=== PATIENT | male | born 1980 | race Caucasian/White ===

== ENCOUNTER 2024-01-31 10:26 | Outpatient (AMB) | payer OTHER, SELFPAY ==
--- NOTE | 2024-01-31 10:27 | MHC.OFFWIV ---
Intake Vital Signs 01/31/24 10:28 Height 5 ft 11 in Weight 180 lb BMI 25.1 BP 118/76 Blood Pressure Location Rt brachial Position Sitting Pulse 92 Pulse Source Pulse Oximeter Pulse Oximetry (%) 98 Oxygen Delivery Method Room Air Intake Visit Reasons: EP- rash on body, not allergic to anything Intake Note: Patient here for a reaction on hands and arms that has been present at least when he noticed it was two days ago. pt did mention he was recently sick. no dietary changes,body soaps,detergents. Patient Tobacco Use Status: Former Tobacco user Allergies No Known Allergies Allergy (Verified 01/31/24 10:32) Do you need a note to return to daycare/school/sports/work: No HPI EP- rash on body, not allergic to anything HPI Details This note is constructed using voice recognition software. While every effort has been made to ensure accuracy, chief nuclear medicine technologist errors may have been included. The patient is a 41 year old male who presents to the clinic today with rash after recent viral illness 2 weeks ago. He notes that the rash appeared several days ago to his right hip and in his left hip. The area was flat, red, not itchy, not irritating, not painful. He has not had any new soaps, lotions, foods, detergents, or any new exposures. He tried Benadryl the last 3 nights, it seemed to make the rash slightly better. He denies fever, chills. [facility] Surgical History (Updated 05/06/20 @ 13:55 by Jacquie Luong, ADIEL, [facility]) No pertinent past surgical history Family History (Updated 05/06/20 @ 13:56 by Jacquie Luong, ADIEL, [facility]) Father No problems noted. Mother No problems noted. Brother No problems noted. Sister No problems noted. Social History Patient Tobacco Use Status: Former Tobacco user Review of Systems Const All systems reviewed & are unremarkable except as noted in HPI and below Physical Exam Vital Signs: Last Vital Signs Pulse 92 01/31/24 10:28 BP 118/76 01/31/24 10:28 Pulse Ox 98 01/31/24 10:28 Oxygen Delivery Method Room Air 01/31/24 10:28 BMI result Body Mass Index 25.1 Const General: cooperative, healthy appearing, comfortable, no acute distress and alert Orientation/consciousness: patient oriented x3 Limitations: no limitations Skin Other: Flat erythematous rash consistent with viral exanthem to right forearm, bilateral hip, and left forearm. General skin exam: elasticity normal and turgor normal Neuro General: patient oriented x3 Psych Appearance: grossly normal Mental Status: mental status grossly normal Speech and movement: Normal speech and movement present Affect: normal affect Assessment & Plan Assessment & Plan (1) Viral exanthem: Code(s): B09 - Unspecified viral infection characterized by skin and mucous membrane lesions Plan: Discussed with viral etiology, this may completely resolve without treatment. Given patient's response to Benadryl, we did discuss additional antihistamine treatments. He will try Pepcid daily in addition to second-generation antihistamine every day for the next week with Benadryl at bedtime. Advised patient to be seen in the emergency room with sudden worsening, including any dyspnea or tongue swelling. Advised patient to follow up with primary care for ongoing rash. Plan See above for full details and plan. Coding Level of Care Code Est Pt Level 3 (81015) Diagnoses Viral exanthem B09
[2024-01-31 10:28] VITALS: BP 118/76; PULSE 92; O2SAT 98; BMI 25.1
== END 2024-01-31 10:47 | disposition home or self-care (01) ==
PROVIDERS: PCP Nurse Practitioner Family; Visit Provider Registered Nurse
DX: B09 Unspecified viral infection characterized by skin and mucous membrane lesions (principal)
CPT/HCPCS: 99213

== ENCOUNTER 2024-10-21 15:04 | Outpatient (AMB) | payer OTHER, SELFPAY ==
[2024-10-21 15:02] VITALS: BP 130/77; PULSE 88; RESP 16; TEMP 36.7; O2SAT 97; BMI 27.5
--- NOTE | 2024-10-21 15:02 | A.OFFPC_ITS ---
Vital Signs 10/21/24 15:02 Height 5 ft 11 in Weight 197 lb BMI 27.5 BP 130/77 Respiration 16 Pulse 88 Pulse Source Pulse Oximeter Temp 98.1 F Temp Source Temporal Artery Scan Pulse Oximetry (%) 97 Oxygen Delivery Method Room Air Intake Visit Reasons: Establish Care Power Line Lineman Required: No Accompanied by: Self / Same As Patient Allergies No Known Allergies Allergy (Verified 10/21/24 15:53) Medication List - Last Reconciled 10/21/24 by Janette Madrid PA-C No Known Home Meds Tobacco use date assessed: 10/21/24 Dental Screening Dental Screen Date: 10/21/24 Did you have a dental visit in the last 12 months?: Yes Did you have a dental problem in the last 6 months where you did not have access to dental care?: No Was dental information given to patient?: Patient has dentist HPI Establish Care HPI Details The patient is a 43-year-old male presenting patient new primary care provider due to he has not seen a primary care provider in over 3 years. He would like to discuss his anxiety, a request for colorectal cancer screening due to a family history, and a request for a vasectomy. The patient describes having feelings of anxiety. He denies any formal psychiatric diagnoses in the past, and while he has not experienced symptoms such as headaches or dizziness, he is seeking a referral for counseling services. Concerned about his family predisposition to colorectal cancer, where his paternal and maternal grandfathers had the condition and knowing his brother had polyps, the patient seeks assessment sooner than the standard 45 years commencement. Although his personal symptomatology has not warranted medical intervention in the past, the patient aligns with the guidelines for earlier screening due to family circumstances. The patient's request for a vasectomy follows his decision to not pursue fatherhood, expressing a desire for a permanent contraceptive solution. Additionally, there is an indication of prior vitamin D deficiency consistent with a typical deficiency seen in individuals living in regions with limited sunlight exposure, suggesting the need for ongoing monitoring. 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 - Lives alone, highlighting independence and potential lack of social support at home. - Has not taken a vacation since August 18, possibly contributing to stress and anxiety. - Expressed a strong desire for a vasect darek, indicating he is secure in his decision not to have children. [facility] Medical History (Updated 10/21/24 @ 15:56 by Janette Madrid PA-C) Anxiety Colon cancer screening Establishing care with new doctor, encounter for Vasectomy evaluation Surgical History No pertinent past surgical history Family History Father High cholesterol Mother Joint problem Brother No problems noted. Sister No problems noted. Social History Housing: House Alcohol intake: current Alcohol intake frequency: a few times a month Patient Tobacco Use Status: Former Tobacco user service: No Current occupational status: employed Cognitive needs: No Hearing needs: No Vision needs: Yes (rx glasses) Questionnaire PHQ-9 Over the last 2 weeks, how often have you been bothered by any of the following problems? 1. Little interest or pleasure in doing things: several days 2. Feeling down, depressed, or hopeless: more than half the days 3. Trouble falling or staying asleep, or sleeping too much: nearly every day 4. Feeling tired or having little energy: several days 5. Poor appetite or overeating: more than half the days 6. Feeling bad about yourself - or that you are a failure or have let yourself or your family down: nearly every day 7. Trouble concentrating on things, such as reading the newspaper or watching television: not at all 8. Moving or speaking so slowly that other people could have noticed. Or the opposite - being so fidgety or restless that you have been moving around a lot more than usual: not at all 9. Thoughts that you would be better off or of hurting yourself in some way: not at all Total score: 12 Depression Screening Interpretation: Positive Depression Screening Follow-up: Community Mental Health Worker F/U Depression Screening Done: Yes 81048 - PHQ-9 Billing: Yes Source: Developed by Drs. Rubén Paris, Chastity Cheema, Leopoldo Kapoor and colleagues, with an educational sylvain from [employer]. Thrive Questionnaire Date Thrive assessed: 10/21/24 I am a: Patient What is your living situation today?: I have a steady place to live Within the past 12 months, did the food you bought not last and you didn't have the money to get more?: Never true Within the past 12 months, did you worry whether your food would run out before you got money to buy more?: Never true Do you have trouble paying for medicines?: No Do you have trouble getting transportation to medical appointments?: No Do you have trouble paying your heating and electricity bill?: No Do you have trouble taking care of your child, family member or friend?: No Do you have trouble with day-to-day activities such as bathing, preparing meals, shopping, managing finances, etc.?: No Are you currently unemployed and looking for a job?: No Are you interested in more education?: No Please select the resources that you would like help with: None THRIVE Score: 0 AUDIT C Alcohol Use Questionnaire (AUDIT-C) 1. How often do you have a drink containing alcohol?: 2-4 times a month 2. How many drinks containing alcohol do you have on a typical day when you are drinking?: 1 or 2 3. How often do you have six or more drinks on one occasion?: Never Total Score: 2 Score Reviewed/Action Taken: No LEXUS-7 AMB Questionnaire LEXUS-7 Date LEXUS - 7 assessed: 10/21/24 Feeling nervous, anxious, or on edge: 3 = Nearly every day Not being able to stop or control worryin = Nearly every day Worrying too much about different things: 3 = Nearly every day Trouble relaxin = Several days Being so restless that it is hard to sit still: 0 = Not at all Becoming easily annoyed or irritable: 2 = More than half the days Feeling afraid as if something awful might happen: 3 = Nearly every day Total LEXUS-7 score (0-4 normal; 5-9 mild; 10-14 moderate; 15-21 severe): 15 Source: Developed by Drs. Rubén Paris, Chastity Cheema, Leopoldo Kapoor and colleagues, with an educational sylvain from [employer] LEXUS-7 Assessment Billing LEXUS-7 Assessment Tool: LEXUS-7 Assessment 16523 Review of Systems Const Details: - General: Denies unintentional weight gain or weight loss. - Cardiovascular: Denies chest pain or shortness of breath. - Gastrointestinal: Denies black or bloody stools, diarrhea, or constipation. Reports past family history of colon cancer. - Neurological: Denies dizziness or headaches. - Psychiatric: Reports anxiety; denies feeling of depression or having been diagnosed with anxiety or depression previously. Denies suicidal thoughts or hearing voices. - Dermatological: Denies current rashes or skin abnormalities; reports prior post-viral rash which resolved. Physical exam (Primary Care) Vital Signs: Last Vital Signs Temp 98.1 F 10/21/24 15:02 Pulse 88 10/21/24 15:02 Resp 16 10/21/24 15:02 BP 130/77 10/21/24 15:02 Pulse Ox 97 10/21/24 15:02 Oxygen Delivery Method Room Air 10/21/24 15:02 Care Plan Goal for BP management: <130/90 at Goal BMI result Body Mass Index 27.5 BMI Assessment/Plan discussion: High BMI High, discussed plan: lifestyle, weight reduction, dietary, physical activity and alcohol moderation Tobacco/Smoking Status: Tobacco use Status Tobacco use date assessed 10/21/24 10/21/24 15:12 Patient Tobacco Use Status Former Tobacco user 10/21/24 15:12 PHQ-9: PHQ-9 Score PHQ-9: Total score 12 10/21/24 15:12 Depression Screening Interpretation: Positive Depression Screening Follow-up: Community Mental Health Worker F/U Thrive Assessment: Date of Thrive Assessment Date Thrive assessed 10/21/24 10/21/24 15:12 Const Other: Appearance: Alert. Oriented X3. No acute distress. Head: Normal external exam. Normocephalic. Atraumatic. Eyes: Pupils are equal, round, and reactive to light. Extraocular movements intact. Conjunctiva and sclera normal. Eyelids normal. Ears: External auditory canal normal. Tympanic membranes normal. Throat: Pharynx normal. Uvula midline. Moist mucous membranes. Neck: Normal inspection. Neck supple. Full range of motion. No adenopathy. Thyroid Normal. No meningeal signs. No neck mass noted. Cardiovascular: Normal heart rate and rhythm. Heart sound normal. No murmurs noted. Pulses normal throughout. Respiratory: No respiratory distress. Painless inspiration. Breath sounds normal. No wheezes/rales/rhonchi noted. Chest nontender. No accessory muscle usage noted or decreased air movement noted. Abdomen: Soft and nontender. Bowel sounds normal in all 4 quadrants. No distention noted. No organomegaly noted. No visible injury noted. Back: No costovertebral angle tenderness. Full range of motion noted. Skin: Skin warm and dry. Normal skin color. Normal skin turgor. No rashes/lesions/lacerations noted. Patient reported a post-viral rash that has improved. Extremities: No lower extremity edema. Extremities exhibit normal range of motion. Extremities nontender. Neuro: Oriented X 3. No motor deficit. No sensory deficit. Reflexes normal. Coding Level of Care Code Est Pt Level 4 (65079) Complex EM visit Add On G2211 Diagnoses Establishing care with new doctor, encounter for Z76.89 Vasectomy evaluation Z30.09 Colon cancer screening Z12.11 Anxiety F41.9 Additional Codes PHQ-9 - 55682 - PHQ-9 Billing: Yes ([id number]) LEXUS-7 Assessment Billing - LEXUS-7 Assessment Tool: LEXUS-7 Assessment 95409 ([id number]) Assessment & Plan Assessment & Plan (1) Establishing care with new doctor, encounter for: Code(s): Z76.89 - Persons encountering health services in other specified circumstances Category: Medical (2) Vasectomy evaluation: Code(s): Z30.09 - Encounter for other general counseling and advice on contraception Category: Medical Plan: Referral to a urologist for consultation and scheduling of the vasectomy procedure was discussed, emphasizing patient's decision. (3) Colon cancer screening: Code(s): Z12.11 - Encounter for screening for malignant neoplasm of colon Category: Medical Plan: Due to a strong family history of colon cancer, referral for gastrointestinal evaluation and possible colonoscopy is planned for preventive care. (4) Anxiety: Code(s): F41.9 - Anxiety disorder, unspecified Category: Medical Plan: The patient is referred to [facility] for comprehensive evaluation and management of anxiety without medication initiation. Plan Plan Patient was informed and verbally consented to the use of an ambient scribe for clinic note documentation during this visit. 1. Anxiety The patient is referred to [facility] for comprehensive evaluation and management of anxiety without medication initiation. 2. Screening For Colorectal Cancer Due to a strong family history of colon cancer, referral for gastrointestinal evaluation and possible colonoscopy is planned for preventive care. 3. Vasectomy, Counseling Or Pre-Procedure Evaluation And Management Referral to a urologist for consultation and scheduling of the vasectomy procedure was discussed, emphasizing patient's decision. 4. Vitamin D Deficiency, Suspected A lab test for vitamin D assessment is scheduled due to prior low levels and potential deficiency risks. 5. Family History Of Colon Cancer Referring the patient for colorectal cancer screening considering familial history enhances early detection and ongoing assessment frameworks. I discussed at length with the patient his concerns regarding anxiety, family history of colon cancer, and request for vasectomy. I provided reassurance regarding the management options for anxiety and agreed on a referral to [facility] for evaluation and therapy. Regarding colorectal cancer screening, I explained the need for a gastroenterology referral due to the patient's significant family history, emphasizing the benefits of early detection via colonoscopy. We reviewed the plan for vasectomy, where I outlined the procedural details, possible risks, permanent nature, and subsequent effects on reproductive health, confirming the patient's decision. Information regarding laboratory assessment for suspected vitamin D deficiency was shared to ensure comprehensive health management. I discussed follow-up timelines and confirmed understanding of anticipatory care needs. Orders: Orders C Reactive Protein Today Z00.00 - Encounter for general adult medical examination without abnormal findings Comprehensive [place]. Panel Fast Today Z00.00 - Encounter for general adult medical examination without abnormal findings Magnesium Today Z00.00 - Encounter for general adult medical examination without abnormal findings Vitamin B12 and Folate Today Z00.00 - Encounter for general adult medical examination without abnormal findings Vitamin D 25-OH Total Today Z00.00 - Encounter for general adult medical examination without abnormal findings TSH reflex Free T4 Today Z00.00 - Encounter for general adult medical examination without abnormal findings Complete Blood Count Auto Diff Today Z00.00 - Encounter for general adult medical examination without abnormal findings Hemoglobin A1c Today Z00.00 - Encounter for general adult medical examination without abnormal findings Lipid Panel Today Z00.00 - Encounter for general adult medical examination without abnormal findings Liver Panel Today Z00.00 - Encounter for general adult medical examination without abnormal findings PSA,Total (Free>4and<10) Today Z00.00 - Encounter for general adult medical examination without abnormal findings Referrals Gastroenterology Referral Z12.11 - Encounter for screening for malignant neoplasm of colon Urology Referral Z30.09 - Encounter for other general counseling and advice on contraception Counseling Referral F41.9 - Anxiety disorder, unspecified Patient Instructions: - Schedule a visit for blood work, including fasting lab tests for vitamin D and other routine panels. - Follow up with the senior clinical research associate for colonoscopy scheduling. - Consult with a urologist regarding the vasectomy procedure. - Attend sessions at [facility] for anxiety management and support. - Maintain a healthy lifestyle, including sunshine exposure or vitamin supplementation, if advised. - Schedule an annual visit in one year unless otherwise recommended based on lab findings. - Contact the office if lab results do not appear, or if referrals are not received within one month.
--- OUTSIDE RECORDS SUMMARY | 2024-10-21 16:40 | XMS_ITS | Encounter Summary ---
Author Organization [employer] Address [address] [place] [address] Care Team Providers Care Interior Design Assistant Name Role Phone Nadir Arambula MD Primary Care Prov ider Reason for Visit * Reason Onset Date Comments NEW PATIENT 06/22/2023 Encounter Details Date Type Department Care Team (Late st Contact Info) Description 06/22/2023 Telephone [facility] [address] [place] [address] Crow Lutz MD [address] [place] [address] NEW PATIENT Social History Tobacco Use Types Packs/Day Years Used Date Smoking Tobacco: Never Assessed Sex and Gender Information Value Date Recorded Sex Assigned at Male 06/22/2023 4:01 PM EST Legal Sex Male 3:59 PM EST Gender Identity Male 06/22/2023 4:01 PM EST Sexual Orientation Don't know 06/22/2023 4: 02 PM EST documented as of this encounter Miscellaneous Notes * Telephone Encounter - Juana Renee - 06/22/2023 4:03 PM EST Pt is on [facility] as of 06/15/2023 documented in this encounter Plan of Treatment Not on file documented as of this encounter Visit Diagnoses Not on filedocumented in this encounter Care Teams Interior Design Assistant Relationship Specialty Start Date End Date Nadir Arambula MD [address] [place] [address] PCP - General Internal Medicine 01/08/24 documented as of this encounter
--- OUTSIDE RECORDS SUMMARY | 2024-10-21 16:40 | XMS_ITS | Clinical Summary ---
Author Organization [facility] Address [address] [place] [address] Care Team Providers Care Tool Engine Lathe Set Up Operator Name Role Phone Nadir Arambula MD Primary Care Prov ider Allergies No known active allergies Medications No known medications Active Problems Problem Noted Date Diagnosed Date Encounter for medical examination to establish c are 01/04/2024 Assessment & Plan (01/04/2024 2:10 PM EDT): Patient has not been seen by a pcp in over 10 years No hospitalizations No recent er visit Pmhx- Pshx umbilical hernia repair All:- Meds: tylenol/motrin otc prn Family History Medical History Relation Name Comments Hyperlipidemia Father Osteoarthritis Mother Cancer Paternal Grandfather Relation Name Status Comments Father Mother Paternal Grandfather Social History Tobacco Use Types Packs/Day Years Used Date Smoking Tobacco: Never Smokeless Tobacco: Never Tobacco Cessation:Counseling Given: Not Answered Alcohol Use Standard Drinks/Week Comments Yes 0 (1 standard drink = 0.6 oz pur e alcohol) socially Depression Answer Date Recorded Patient Health Questionnaire-9 Score 0 01/04/2024 Patient Health Questionnaire-9 Score 0 01/04/2024 Last PHQ-9: Questionnaire Data Not on file 0 01/04/2024 Housing Stability Answer Date Recorded What is your housing situation today? I have dana madera 01/04/[address] you li ve. Do you have problems with any of the following? None of the above 01/04/2024 Food Insecurity Answer Date Recorded Within the past 12 months, y ou worried that your food would run out before you got money to buy more: Never True 01/04/2024 Within the past 12 months,th e food you bought just didn't last and you didn't have enough money to get more: Never True Transportation Answer Date Recorded In the past 12 months, has l ack of transportation kept you from medical appts, meetings, work or from getting things needed for daily living? No 01/04/2024 Utilities Answer Date Recorded In the past 12 months, has t he electric, gas, oil or water company threatened to shut off services in your home? No 01/04/2024 Depression Answer Date Recorded Patient Health Questionnaire-2 Score 0 01/04/2024 Internet Access Answer Date Recorded Internet Access Q1 Yes 02/19/2024 Internet Access Q2 Not on file 02/19/2024 Sex and Gender Information Value Date Recorded Sex Assigned at Male 06/22/2023 4:01 PM EST Legal Sex Male 3:59 PM EST Gender Identity Male 06/22/2023 4:01 PM EST Sexual Orientation Don't know 06/22/2023 4: 02 PM EST Plan of Treatment Health Maintenance Due Date Last Done Comments HIV Screening 1981 Lipid Panel 1981 Alcohol/Substance Use Screening 1993 Family Planning (PISQ) 1996 Hepatitis C Screening 11/04/1999 Hepatitis B Vaccines (1 of 3 - 19+ 3-dose series) 2000 DTaP/Tdap/Td Vaccines (2 - T d or Tdap) 08/02/2017 08/02/2007 COVID-19 Vaccine (2023-2 5 season) 2024 05/08/2021, 10/04/2020, 09/06/2020 Influenza Vaccine (#1) 2024 05/08/2021 Depression Screening 01/03/2025 01/04/2024, 01/04/2024 SDOH Screening 01/03/2025 01/04/2024 Tobacco Screening 01/03/2025 01/04/2024 Zoster Vaccines (1 of 2) 11/04/2031 RSV Patients and Patients Aged 60 years or older (1 - 1-dose 75+ series) 2056 Pneumococcal Vaccine: Pediatrics (0 to 5 Years) and At-Risk Patients (6 to 49) Years) Aged Out 08/05/2010 No longer eligible b ased on patient's age to complete this topic HIB Vaccines Aged Out No longer eligi ble based on patient's age to complete this topic HPV Vaccines Aged Out No longer eligi ble based on patient's age to complete this topic Hepatitis A Vaccines Aged Out No long er eligible based on patient's age to complete this topic IPV Vaccines Aged Out No longer eligi ble based on patient's age to complete this topic Meningococcal Vaccine Aged Out No evert chuck eligible based on patient's age to complete this topic RSV under 20 months Aged Out No longe r eligible based on patient's age to complete this topic Rotavirus Vaccines Aged Out No longer eligible based on patient's age to complete this topic Insurance [facility] [employer] Care Teams Tool Engine Lathe Set Up Operator Relationship Specialty Start Date End Date Nadir Arambula MD [address] [place] [id number] PCP - General Internal Medicine 01/08/24
--- OUTSIDE RECORDS SUMMARY | 2024-10-21 16:40 | XMS_ITS | Clinical Summary ---
Demographics Address [address] [facility] [address] [place] [address] Home Phone Email Address Preferred Language Vincentian Marital Status Latter Day Affiliation Unknown Race White Ethnic Group Not or Lati no Author Organization [facility] Address [address] [place] [address] Care Team Providers Care Yeast Cake Cutter Name Role Phone Karen Love [facility] Primary Care Provider [phone] Source Comments PLEASE NOTE, if this patient is a minor, it may be UNLAWFUL to discuss sensitive information that is contained in these records (such as FAMILY PLANNING, MENTAL HEALTH or SUBSTANCE ABUSE) with the minor patient's parent or other person without the patient's specific authorization.[facility] Allergies No known active allergies Medications No known medications Active Problems No known active problems Immunizations Immunization Administration Dates Next Due PNEUMOCOCCAL CONJUGATE PCV 13 08/05/2010 TDAP 08/02/2007 Family History Medical History Relation Name Comments Hypertension Brother Musculoskeletal Disorders Father ba ck pain Hypertension Mother Relation Name Status Comments Brother Alive Father Alive Mother Alive Social History Tobacco Use Types Packs/Day Years Used Date Smoking Tobacco: Former Comments:quiied smoking 09/05 16, used to smoke 1 pack a day Alcohol Use Standard Drinks/Week Comments Yes 0 (1 standard drink = 0.6 oz pur e alcohol) socially Social Connections Answer Date Recorded Social Connections and Isolation 0 02/10/2019 Financial Resource Strain Answer Date R ecorded Financial Resource Strain 0 2018 Stress Answer Date Recorded Stress 0 02/10/2019 Physical Activity Answer Date Recorded Physical Activity 0 02/10/2019 Food Insecurity Answer Date Recorded Food 0 02/10/2019 Transportation Needs Answer Date Record ed Transportation 0 02/10/2019 Housing Stability Answer Date Recorded Housing 0 02/10/2019 Safety and Environment Answer Date Luke rded Safety 0 02/10/2019 Utilities Answer Date Recorded Utilities 0 02/10/2019 Employment Answer Date Recorded Employment 0 02/10/2019 Sex and Gender Information Value Date Recorded Sex Assigned at Not on file Legal Sex Male 11:49 AM PDT Gender Identity Not on file Sexual Orientation Not on file Last Filed Vital Signs Vital Sign Reading Time Taken Comments Blood Pressure 126/78 12/16/2016 1:55 PM EDT Pulse 64 12/16/2016 1:55 PM EDT Temperature 36.8 ??C (98.3 ??F) 12/16/2016 1:55 PM ED T Respiratory Rate 17 12/16/2016 1:55 PM EDT Oxygen Saturation - - Inhaled Oxygen Concentration - - Weight 101.2 kg (223 lb) 12/16/2016 1:55 PM EDT Height 180.3 cm (5' 11 ) 12/16/2016 1:55 PM EDT Body Mass Index 31.1 12/16/2016 1:55 PM EDT Plan of Treatment Not on file Insurance [employer] Member Subscriber Plan / Payer (Ef fective 2016-Present) Name:Emiliano Mcnulty Relation to Subscriber:Self Name:Emiliano Mcnulty Payer ID:[id number] Group ID:Not on file Type:Indemnity Address: [facility] [address] [place] [address] Care Teams Yeast Cake Cutter Relationship Specialty Start Date End Date Karen Love FNP [facility] [place] [address] PCP - General Internal Medicine 08/09/18
== END 2024-10-21 15:36 | disposition home or self-care (01) ==
LOC: HO.HMCSH 15:04
PROVIDERS: PCP Nurse Practitioner Family; Visit Provider Physician Assistant Medical
DX: F41.9 Anxiety disorder, unspecified (principal); Z76.89 Persons encountering health services in other specified circumstances; Z12.11 Encounter for screening for malignant neoplasm of colon

== ENCOUNTER → 2024-10-21 15:04 | Outpatient (BNVA) | payer OTHER, SELFPAY | PROVIDERS: PCP Nurse Practitioner Family; Visit Provider Physician Assistant Medical | DX: Z76.89 Persons encountering health services in other specified circumstances (principal); Z30.09 Encounter for other general counseling and advice on contraception; F41.9 Anxiety disorder, unspecified; Z80.0 Family history of malignant neoplasm of digestive organs | CPT/HCPCS: 96127; 99212 ==

== ENCOUNTER 2025-03-14 15:22 | Outpatient (AMB) | payer OTHER, SELFPAY ==
--- NOTE | 2025-03-14 15:24 | MHC.OFFVIS ---
Vital Signs 03/14/25 15:28 Height 5 ft 11 in Weight 190 lb BMI 26.5 BP 114/64 Blood Pressure Location Lt brachial Position Sitting Pulse 84 Pulse Source Pulse Oximeter Pulse Oximetry (%) 96 Oxygen Delivery Method Room Air Intake Visit Reasons: colo screening Intake Note: New pt for initial colo screening. CC: Pt denies any GI sx or concerns at this time. Pt reports FMHx on both sides of his family. Siding Installer Required: No Accompanied by: Self / Same As Patient Allergies No Known Allergies Allergy (Verified 10/21/24 15:53) HPI HPI colo screening: Details: 44-YEAR-OLD MALE HERE for preprocedural meeting to discuss a screening colonoscopy. He is referred by Janette Madrid. PMX Anxiety Family history of colon cancer and polyps * SURGICAL HISTORY Epigastric hernia repair * ALLERGIES: NKDA * Compumatrix LABS: none TODAY'S VISIT This is his 1st colonoscopy. Bowel or upper GI problems: No Cardiac or respiratory problems: No Anesthesia or sedation problems: no Infectious disease problems: no There is a family history of polyps in both the mother and father and colon cancer in the maternal grandfather. [facility] Medical History (Updated 03/14/25 @ 15:31 by ALBA Burciaga) Establishing care with new doctor, encounter for Colon cancer screening Anxiety Vasectomy evaluation Surgical History (Updated 03/14/25 @ 15:36 by ALBA Burciaga) H/O ventral hernia repair Family History Father High cholesterol Mother Joint problem Brother No problems noted. Sister No problems noted. Social History Housing: House Alcohol intake: current Alcohol intake frequency: a few times a month Patient Tobacco Use Status: Former Tobacco user service: No Current occupational status: employed Cognitive needs: No Hearing needs: No Vision needs: Yes (rx glasses) Review of Systems Const Denies fatigue, Denies fever(s), Denies night sweats, Denies poor appetite and Denies weight loss ENT Reports Normal hearing present, Denies dental pain, Denies dysphagia, Denies hearing loss, Denies mouth pain, Denies odynophagia, Denies throat swelling, Denies tongue swelling and Reports other (Dentition adequate) Card Reports no additional complaints Resp Reports no additional complaints GI Details: Denies abdominal pain, Denies melena, Denies bloating, Denies hematochezia, Denies constipation, Denies GI cramping, Denies dysphagia, Denies excessive flatus, Denies early satiety, Denies heartburn, Denies diarrhea, Denies nausea, Denies odynophagia, Denies vomiting and Denies hematemesis Skin/Breast Denies pruritus, Denies lesions, Denies rash and Denies jaundice Neuro Reports Normal hearing present and Denies Abnormal speech present Endo Denies fatigue Aller/Immun Denies throat swelling and Denies tongue swelling Physical Exam Const General: cooperative, no acute distress, well developed and well groomed Nutritional Appearance: average body habitus and well nourished Orientation/consciousness: oriented to person, oriented to place and oriented to time Limitations: No language barrier HEENT Head: Yes normocephalic and Yes atraumatic Eyes General: appearance normal, both eyes and all related structures Pupils: Equal, round and reactive pupils present Neck Neck: Yes normal visual inspection and Yes no lymphadenopathy Thyroid: Thyroid normal Resp Effort & Inspection: normal respiratory effort and able to speak in complete sentences Auscultation: clear to auscultation bilaterally Cardio Rate: regular rate Rhythm: regular rhythm Heart sounds: Normal, physiologic split S2 sound present Peripheral pulses: radial pulses present and posterior tibial pulses present GI Inspection: No distended and No Abdominal panniculus present Palpation (GI): Soft to palpation, nontender, no guarding, not rigid and No hepatosplenomegaly present Percussion: Yes normal to percussion Auscultation: normal bowel sounds Rectal Exam - Male: Yes deferred Abdomen image:  1. surgical scar Skin General skin exam: no rashes or lesions noted, turgor normal, skin not dry, no jaundice, No spider nevi and no striae Rashes: no rashes Nails: normal Neuro General: oriented to person, oriented to place and oriented to time Cranial nerves: Yes Equal, round and reactive pupils present and Yes Normal hearing present Speech: No Abnormal speech present Extrem General: Yes normal to inspection, No clubbing, No cyanosis and No edema Psych Appearance: grossly normal and well kempt Mental Status: mental status grossly normal Speech and movement: Normal speech and movement present Affect: normal affect Attitude: cooperative Thought process: Normal thought process present and not confabulating Thought content: Normal thought content present Insight: Good insight present (Psych) Judgement: Good judgement present (Psych) Assessment & Plan Assessment & Plan (1) Family history of polyps in the colon: Code(s): Z83.719 - Family history of colon polyps, unspecified Category: Medical (2) Pre-op examination: Code(s): Z01.818 - Encounter for other preprocedural examination Category: Medical Plan This is his 1st colonoscopy. Bowel or upper GI problems: No Cardiac or respiratory problems: No Anesthesia or sedation problems: no Infectious disease problems: no There is a family history of polyps in both the mother and father and colon cancer in the maternal grandfather. Orders: Orders Complete Blood Count Auto Diff Today Z01.818 - Encounter for other preprocedural examination Comprehensive Met. Panel Today Z01.818 - Encounter for other preprocedural examination Referrals GI Procedure Notification Z01.818 - Encounter for other preprocedural examination, Z83.719 - Family history of colon polyps, unspecified Medications: New sodium,potassium,mag sulfates 17.5-3.13-1.6 gram (Suprep Bowel Prep Kit) 480 mL orally; FOR COLONOSCOPY PREP 354 mL 0RF Coding Level of Care Code New Pt Level 3 (94513) Diagnoses Family history of polyps in the colon Z83.719 Pre-op examination Z01.818
[2025-03-14 15:28] VITALS: BP 114/64; PULSE 84; O2SAT 96; BMI 26.5
--- OUTSIDE RECORDS SUMMARY | 2025-03-14 15:49 | XMS_ITS | Encounter Summary ---
Author Organization [facility] Address [address] [place] [address] Phone Care Team Providers Care Foaming Machine Operator Name Role Phone Hayder Monson INTEGRATION ASSISTANT Primary Care Provider + Encounter Details Date Type Department Care Team (Late st Contact Info) Description 11/28/2019 Transcribe Orders [facility] [address] [place] [id number] Hayder Monson, JUDIE [address] [place] [address] [place] [address] COVID-19 ruled out (Primary Dx) Social History Tobacco Use Types Packs/Day Years Used Date Smoking Tobacco: Never Assessed Sex and Gender Information Value Date Recorded Sex Assigned at Not on file Legal Sex Male 7:59 AM EST Gender Identity Not on file Sexual Orientation Not on file documented as of this encounter Plan of Treatment Not on file documented as of this encounter Results * SARS-CoV-2 antibody, total (11/28/2019 11:31 AM EDT) [facility] SARS-CoV-2 antibody total Negative Negative [facility] Comment: A negative test result does not rule out the possibility of an infection with SARS-CoV-2. Serum or plasma samples from the early (pre-seroconversion) phase of illness can yield negative findings. Therefore, this test cannot be used to diagnose an acute infection. Also, over time, titers may decline and eventually become negative. Blood 11/28/2019 11:3 1 AM EDT 11/28/2019 12:03 PM EDT us Hayder Monson INTEGRATION ASSISTANT LAB BLOOD ORDERABLES Fin al Result [facility] [address] [place] [address] documented in this encounter Visit Diagnoses Diagnosis COVID-19 ruled out- Primary documented in this encounter Care Teams Foaming Machine Operator Relationship Specialty Start Date End Date Hayder Monson, JUDIE [address] [place] [address] PCP - General Family Medicine 11/28/19 documented as of this encounter Additional Source Comments The information contained in this document represents components of the legal health record. It is not the complete legal health record.[facility]
--- OUTSIDE RECORDS SUMMARY | 2025-03-14 15:49 | XMS_ITS | Encounter Summary ---
Author Organization [facility] Address [address] [place] [address] Phone Care Team Providers Care Ambulance Officer Name Role Phone Marin Childers MD Primary Care Provider [phone] Hayder Monson NP Primary Care Provider + Encounter Details Date Type Department Care Team (Late st Contact Info) Description 06/11/2019 Transcribe Orders [facility] [address] [place] [address] Marin Childers MD [address] [place] [address] [email or web address] Carpal tunnel syndrome, unspecified laterality (Primary Dx); Screening for lipoid disorders Social History Tobacco Use Types Packs/Day Years Used Date Smoking Tobacco: Never Assessed Sex and Gender Information Value Date Recorded Sex Assigned at Not on file Legal Sex Male 7:59 AM EST Gender Identity Not on file Sexual Orientation Not on file documented as of this encounter Plan of Treatment Not on file documented as of this encounter Results * Miscellaneous lab test (06/11/2019 10:15 AM EST) TESTS REQUESTED SANDY DIFF (CBC) [facility] SPECIMEN/TUBE TYPE LAV [facility] REQUEST RECEIVED Request received. A separate order for the requested test will be generated by the laboratory. [facility] Blood 06/11/2019 10:1 5 AM EST 06/11/2019 10:25 AM EST us Marin Childers MD LAB BLOOD ORDERABLES Final Result Performing Organization Address [facility]/ZIP Co de Phone Number [address] [address] * (ABNORMAL) URINALYSIS WITH SEDIMENT (06/11/2019 9:48 AM EST) WBC NONE SEEN NONE SEEN /hpf [facility] RBC 0-2(A) NONE SEEN /hpf [facility] URINE EPITHELIAL NONE SEEN NONE SEEN [facility] MUCUS NONE SEEN NONE SEEN /hpf [facility] BACTERIA NONE SEEN NONE SEEN /hpf [facility] CRYSTALS 2+ [facility] Comment:Calcium Oxalate COLOR Yellow Yellow [facility] CLARITY Clear [facility] GLUCOSE Negative Negative [facility] BILI Negative Negative [facility] KETONES Negative Negative [facility] SPECIFIC GRAVITY 1.025 1.005 - 1.030 [facility] BLOOD Negative Negative [facility] PH 6.0 5.0 - 8.0 [facility] Protein-UA Negative Negative [facility] NITRITE Negative Negative [facility] Leukocyte esterase, ur Negative Negative [facility] Urine (Urine) 06/11/2019 9:4 8 AM EST 06/11/2019 10:22 AM EST us Marin Childers MD URINE ORDERABLES Final Res ult Performing Organization Address [facility] Co de Phone Number [address] [address] * TSH (06/11/2019 9:17 AM EST) TSH 0.83 0.27 - 4.20 uIU/mL [facility] Blood 06/11/2019 9:17 AM EST 06/11/2019 9:50 AM EST us Marin Childers MD LAB BLOOD ORDERABLES Final Result Performing Organization Address [facility] Co de Phone Number [address] [address] * (ABNORMAL) Lipid panel (06/11/2019 9:17 AM EST) HDL 68 mg/dL [facility] Comment: Interpretation <40 mg/dL: Low HDL cholesterol (major risk factor for CHD) Greater than or equal to 60 mg/dL: High HDL cholesterol ( negative risk factor for CHD) HDL - cholesterol is affected by a number of factors, e.g. smoking, excerise, hormones, sex and age. CHOLESTEROL 183 0 - 240 mg/dL [facility] TRIGLYCERIDES 62 30 - 160 mg/dL [facility] LDL 103 50 - 129 mg/dL [facility] Comment: LDL levels in terms of risk for coronary heart disease: <100 mg/dL: Optimal 100-129 mg/dL: Near or above optimal 130-159 mg/dL: Borderline high 160-189 mg/dL: High >190 mg/dL: Very High CARDIAC RISK RATIO 2.7(L) 3.4 - 5.0 C [facility] Blood 06/11/2019 9:17 AM EST 06/11/2019 9:50 AM EST Marin Childers MD LAB BLOOD ORDERABLES Final Result Performing Organization Address City/State/[facility] Co de Phone Number [facility] [address] [place], [place] [phone] * (ABNORMAL) Comprehensive metabolic panel (06/11/2019 9:17 AM EST) SODIUM 140 133 - 146 mmol/L [facility] POTASSIUM 4.2 3.3 - 5.1 mmol/L [facility] CHLORIDE 102 96 - 108 mmol/L [facility] CO2 26 21 - 35 mmol/L [facility] BUN 26(H) 6 - 19 mg/dL [facility] CREATININE 0.90 0.5 - 1.5 mg/dL [facility] GLUCOSE 102(H) 70 - 99 mg/dL [facility] ALBUMIN 4.3 3.9 - 4.8 g/dL [facility] TOTAL PROTEIN 7.0 6.5 - 8.0 g/dL [facility] CALCIUM 9.2 8.4 - 10.3 mg/dL [facility] ALKALINE PHOSPHATASE 60 39 - 117 U/L [facility] TOTAL BILIRUBIN 0.3 0.0 - 1.2 mg/dL [facility] AST 66(H) 0 - 37 U/L [facility] ALT 59(H) 0 - 40 U/L [facility] GLOBULIN 2.7 1 - 4.8 g/dL [facility] EGFR 109 >59 mL/min/1.7 3m2 [facility] Comment:If patient is black, multiply result by 1.159. Estimated glomerular filtration rate calculated using the CKD-EPI equation. ANION GAP 16 10 - 20 mmol/L [facility] Blood 06/11/2019 9:17 AM EST 06/11/2019 9:50 AM EST us Marin Childers MD LAB BLOOD ORDERABLES Final Result Performing Organization Address City/State/[facility] Co de Phone Number [facility] [address] [place] [address] documented in this encounter Visit Diagnoses Diagnosis Carpal tunnel syndrome, unspecified laterality- Primary Screening for lipoid disorders documented in this encounter Care Teams Ambulance Officer Relationship Specialty Start Date End Date Marin Childers MD PCP - General Internal Medicine 06/11/19 11/27/19 Hayder Monson NP [facility] [place] [address] PCP - General Family Medicine 11/28/19 documented as of this encounter Additional Source Comments The information contained in this document represents components of the legal health record. It is not the complete legal health record.[facility]
--- OUTSIDE RECORDS SUMMARY | 2025-03-14 15:49 | XMS_ITS | Clinical Summary ---
Demographics Address [address] [facility] [address] [place] [address] Home Phone Email Address Preferred Language Nepali Marital Status Judaism Affiliation Unknown Race White Ethnic Group Not or Lati no Author Organization [facility] Address [address] [place] [address] Care Team Providers Care Construction Economist Name Role Phone Karen Love [facility] Primary Care Provider [phone] Source Comments PLEASE NOTE, if this patient [...] 64 12/16/2016 1:55 PM EDT Temperature 36.8 C (98.3 F) 12/16/2016 1:55 PM EDT Respiratory Rate 17 12/16/2016 1:55 PM EDT Oxygen Saturation - - Inhaled Oxygen Concentration - - Weight 101.2 kg (223 lb) 12/16/2016 1:55 PM EDT Height 180.3 cm (5' 11 ) 12/16/2016 1:55 PM EDT Body Mass Index 31.1 12/16/2016 1:55 PM EDT Plan of Treatment Not on file Insurance [employer] Member Subscriber Plan / Payer (Ef fective 2016-Present) Name:Emiliano Mcnulty Relation to Subscriber:Self Name:Emiliano Mcnulty Payer ID:[id number] Group ID:Not on file Type:Indemnity Address: [facility] [address] [place] [address] Care Teams Construction Economist Relationship Specialty Start Date End Date Karen Love FNP [address] [place] [address] PCP - General Internal Medicine 08/09/18
--- OUTSIDE RECORDS SUMMARY | 2025-03-14 15:49 | XMS_ITS | Clinical Summary ---
Demographics Address [address] [facility] [address] [place] [address] Home Phone Email Address Preferred Language Vincentian Marital Status Single Alevism Affiliation Unknown Race White Ethnic Group Not or Lati no Author Organization [facility] Address [address] [place] [address] Phone Care Team Providers Care Laundry Or Dry Cleaners Counter Clerk Name Role Phone Hayder Monson PAINT FORMULATOR Primary Care Provider + Social History Tobacco Use Types Packs/Day Years Used Date Smoking Tobacco: Never Assessed Education Answer Date Recorded Are you interested in more education? Not on kyle e 10/14/2022 Are you concerned about learning? Not on file 10/14/2022 No 10/14/2022 No 10/14/2022 Digital Access Answer Date Recorded No 11/15/2022 No 11/15/2022 Reliable internet access at home? Not on file 11/15/2022 Device with a working camera? Not on file Sex and Gender Information Value Date Recorded Sex Assigned at Not on file Legal Sex Male 7:59 AM EST Gender Identity Not on file Sexual Orientation Not on file Plan of Treatment Not on file Medical Devices Not on file Insurance * Guarantor: Emiliano Mcnulty Account Type Relation to Patient Date of Phone Billing Address Personal/Family Self 1980 [address] [facility] [address] [place] [address] WELLSENSE NON NSPG PCP [employer] * Guarantor: Emiliano Mcnulty Account Type Relation to Patient Date of Phone Billing Address Personal/Family Self 1980 [address] [facility] [address] [place] [address] WELLSENSE NON NSPG PCP [employer] Member Subscriber Plan / Payer (Ef fective 2019-Present) Name:Emiliano Mcnulty Relation to Subscriber:Self Name:Emiliano Mcnulty Payer ID:[id number] Type:HMO Address: [place] [id number] 06/[address] WELLSENSE NON NSPG PCP [employer] Address: [address] [address] 06/[address] [address] WELLSENSE NON NSPG PCP [employer] * Guarantor: Emiliano Mcnulty Account Type Relation to Patient Date of Phone Billing Address Personal/Family Self 1980 06[address]20 [facility] [address] [place] [address] WELLSENSE NON NSPG PCP [employer] 06/[address] WELLSENSE NON NSPG PCP [employer] 06/20 [facility] [place] WELLSENSE NON NSPG PCP [employer] * Guarantor: Emiliano Mcnulty Account Type Relation to Patient Date of Phone Billing Address Personal/Family Self 1980 [address] [facility] [address] [place] [address] WELLSENSE NON NSPG PCP [employer] * Guarantor: Emiliano Mcnulty Account Type Relation to Patient Date of Phone Billing Address Personal/Family Self 1980 [address] [facility] [address] [place] [address] WELLSENSE NON NSPG PCP [employer] Care Teams Laundry Or Dry Cleaners Counter Clerk Relationship Specialty Start Date End Date Hayder Monson NP [address] [facility] [place] [address] PCP - General Family Medicine 11/28/19 Additional Source Comments The information contained in this document represents components of the legal health record. It is not the complete legal health record.[facility]
--- OUTSIDE RECORDS SUMMARY | 2025-03-14 15:49 | XMS_ITS | Encounter Summary ---
Author Organization [employer] Address [address] [facility] [address] [place] [address] Care Team Providers Care Video Effects Editor Name Role Phone Nadir Arambula MD Primary Care Prov ider Reason for Visit * Reason Onset Date Comments NEW PATIENT 06/22/2023 Encounter Details Date Type Department Care Team (Late st Contact Info) Description 06/22/2023 Telephone [facility] [address] [place] [address] Crow Lutz MD [address] [place] [address] NEW PATIENT Social History Tobacco Use Types [...] on filedocumented in this encounter Care Teams Video Effects Editor Relationship Specialty Start Date End Date Nadir Arambula MD [address] [place] [address] PCP - General Internal Medicine 01/08/24 documented as of this encounter
--- OUTSIDE RECORDS SUMMARY | 2025-03-14 15:49 | XMS_ITS | Clinical Summary ---
Author Organization [employer] Address [address] [facility] 7t [place] [address] Care Team Providers Care Movie Producer Name Role Phone Nadir Arambula MD Primary [...] Health Maintenance Due Date Last Done Comments Lipid Panel 1981 Disability Screening 1981 Alcohol/Substance Use Screening 1993 Family Planning (PISQ) 1996 HPV Vaccines (1 - Male 3-dos e series) 1996 Hepatitis C Screening 11/04/1999 Hepatitis B Vaccines (1 of 3 - 19+ 3-dose series) 2000 DTaP/Tdap/Td Vaccines (2 - T d or Tdap) 08/02/2017 08/02/2007 Depression Screening 01/03/2025 01/04/2024, 01/04/2024 SDOH Screening 01/03/2025 01/04/2024 Tobacco Screening 01/03/2025 01/04/2024 COVID-19 Vaccine (4 - 2024-2 6 season) 2025 05/08/2021, 10/04/2020, 09/06/2020 Influenza Vaccine (#1) 2025 05/08/2021 Zoster Vaccines (1 of 2) 11/04/2031 RSV Patients and Patients Aged 60 years or older (1 - 1-dose 75+ series) 2056 Pneumococcal Vaccine: Pediatrics (0 to 5 Years) and At-Risk Patients (6 to 49) Years Aged Out 08/05/2010 No longer eligible b ased on patient's age to complete this topic HIV Screening Completed 12/16/2016 HIB Vaccines Aged Out No longer eligi ble based on patient's age to complete this topic Hepatitis A Vaccines Aged Out No long er eligible based on patient's age to complete this topic IPV Vaccines Aged Out No longer eligi ble based on patient's age to complete this topic Meningococcal B Vaccine Aged Out No l onger eligible based on patient's age to complete this topic Meningococcal Vaccine Aged Out No evert chuck eligible based on patient's age to complete this topic RSV under 20 months Aged Out No longe r eligible based on patient's age to complete this topic Rotavirus Vaccines Aged Out No longer eligible based on patient's age to complete this topic Insurance [facility] Care Teams Movie Producer Relationship Specialty Start Date End Date Nadir Arambula MD [address] [place] [address] PCP - General Internal Medicine 01/08/24
== END 2025-03-14 15:46 | disposition home or self-care (01) ==
LOC: HO.HGI 15:22
PROVIDERS: PCP Nurse Practitioner Family; Visit Provider Nurse Practitioner
DX: Z01.818 Encounter for other preprocedural examination (principal); Z12.11 Encounter for screening for malignant neoplasm of colon; Z83.719 Family history of colon polyps, unspecified
CPT/HCPCS: 99203

== ENCOUNTER → 2025-03-14 15:22 | Outpatient (BNVA) | payer OTHER, SELFPAY | PROVIDERS: PCP Nurse Practitioner Family; Visit Provider Nurse Practitioner | DX: Z01.818 Encounter for other preprocedural examination (principal); Z83.719 Family history of colon polyps, unspecified | CPT/HCPCS: 99202 ==

== ENCOUNTER 2025-04-08 14:30 | Outpatient (AMB) | payer OTHER, SELFPAY ==
--- NOTE | 2025-04-08 15:06 | A.OFFVIS_ITS ---
Intake Visit Reasons: vasectomy consult Intake Note: patient presents today for: vasectomy consult urology medications: none blood thinners: none Clinical Research Coordinator Required: No Accompanied by: Self / Same As Patient Allergies No Known Allergies Allergy (Verified 04/08/25 15:07) HPI Comments Details: Emiliano is a very pleasant male. He is a patient of Dr. Rios. He is seen for the following urologic condition - anxiety about health - Vasectomy evaluation Vasectomy evaluation The patient presents for vasectomy consultation. He is currently single He has fathered - 0 child Current form of control is barrier. Currently works as [employer] The vasectomy may be complicated due to a history of [no] complicating issues, inguinal hernia repair, orchidopexy, history of orchitis, orchiectomy. Patient education has been provided via AUA video, via printed information, risks of failure, recovery time, bruising and potential pain syndrome have been stressed Discussion today focused on the presence of vasectomy and the risks, benefits and alternatives that are available. Vasectomy as intended as a permanent form of control. Printed information and literature was provided to the patient. Overall there is a one in 2500 failure rate. This can occur at any time after vasectomy. Risks were discussed highlighting hematoma, spermatocele, epididymal congestion, development of sperm antibodies, and development of chronic pain estimated between 1-5%. The procedure was reviewed in detail. Anatomical diagrams of the male genitalia were used to explain the location of the vas deferens. The vas deferens will be transected, the proximal end will be cauterized, a metal clip would be applied to separate the 2 vas deferens ends. It was explained the procedure will be done in the office and takes approximately 10-15 minutes. Less common problems that arise with vasectomy include hematoma, bleeding, allergic reaction to anesthetic, epididymal infection, epididymal congestion, scrotal discomfort, spermatic leak, spermatic granuloma and the possibility of antisperm antibodies. He understands these risks and wishes to proceed. Consent was signed at the office today. He also understands that it takes 12 weeks for sperm to fully clear the system. He will need to provide a semen sample at 12 weeks and if this is not clear a 2nd sample at 16 weeks. Medical clearance to stop using protection will only be provided if he satisfies published criteria for sperm clearance. PFSH Medical History (Updated 03/14/25 @ 15:31 by ALBA Burciaga) Establishing care with new doctor, encounter for Colon cancer screening Anxiety Vasectomy evaluation Surgical History (Updated 03/14/25 @ 15:36 by ALBA Burciaga) H/O ventral hernia repair Family History Father High cholesterol Mother Joint problem Brother No problems noted. Sister No problems noted. Maternal Grandfather Colon cancer Paternal Grandfather Colon cancer Social History Housing: House Alcohol intake: current Alcohol intake frequency: a few times a month Patient Tobacco Use Status: Former Tobacco user service: No Current occupational status: employed Cognitive needs: No Hearing needs: No Vision needs: Yes (rx glasses) Review of Systems Const Denies chills and Denies fever(s) Card Reports no additional complaints and Denies syncope Resp Denies cough GI Denies abdominal pain and Denies heartburn Reports as per HPI and Denies change in libido Neuro Denies syncope Psych Denies change in libido Endo Denies change in libido Physical Exam Const General: cooperative, healthy appearing, comfortable and no acute distress Orientation/consciousness: patient oriented x3 HEENT Face and sinus: Yes normal facial exam Mouth: moist mucous membranes Neck Neck: Yes normal visual inspection, Yes full ROM and Yes trachea midline Chest Chest palpation & inspection: normal inspection of the chest Resp Effort & Inspection: normal respiratory effort, able to speak in complete sentences and no respiratory distress GI Inspection: Yes normal to inspection Back/Spine/Pelvis Cervical Spine: normal cervical lordosis Thoracic/Lumbar Spine: thoracic and lumbar spine normal to inspection Skin General skin exam: no rashes or lesions noted Neuro General: patient oriented x3, gait normal, tone normal and moves all extremities Extrem General: Yes normal to inspection and Yes capillary refill normal Assessment & Plan Assessment & Plan (1) Anxiety: Code(s): F41.9 - Anxiety disorder, unspecified Category: Medical (2) Vasectomy evaluation: Code(s): Z30.09 - Encounter for other general counseling and advice on contraception Category: Medical Plan Office vasectomy Medications: New tramadol 50 mg PO Q8H PRN 7 tabs 0RF pain F41.9 - Anxiety disorder, unspecified, N43.3 - Hydrocele, unspecified diazepam Take medication after arrival at office 2 mg PO BID PRN 2 tabs 0RF anxiety 1 day F41.8 - Other specified anxiety disorders, F41.9 - Anxiety disorder, unspecified Patient Instructions: This note is constructed using voice recognition software. While every effort has been made to ensure accuracy enrollment nurse errors may have been included. Imaging studies, laboratory and physical exam results were discussed and reviewed in detail. No major barriers to patient understanding were identified. An opportunity to ask questions regarding the treatment plan was provided. All questions were answered. The patient expressed understanding and agreement with the above treatment plan. The patient is aware they should contact our office by phone for worsening of their current condition or the appearance of new urologic symptoms. Compliance is encouraged with any medications and followup testing that is ordered. It is a privilege to participate in the urologic care of your patient. If you have any questions or concerns regarding treatment for the above conditions, or other urologic issues, please do not hesitate to contact me. The office telephone contact is [phone]. Sincerely, Dr Gurpreet Young MD, [facility] - Urology Compassionate Specialist Care for the Genitourinary System Coding Level of Care Code New Pt Level 4 (78432) Diagnoses Anxiety F41.9 Vasectomy evaluation Z30.09
--- OUTSIDE RECORDS SUMMARY | 2025-04-08 19:34 | XMS_ITS | Clinical Summary ---
Demographics Address [address] [facility] [address] [place] [address] Home Phone Email Address Preferred Language Yi Marital Status Samaritan Affiliation Unknown Race White Ethnic Group Not or Lati no Author Organization [facility] Address [address] [place] [address] Care Team Providers Care Rubber Covering Machine Operator Name Role Phone Karen Love [facility] Primary Care Provider Source Comments PLEASE NOTE, if this patient [...] Plan of Treatment Not on file Insurance [employer] Member Subscriber Plan / Payer (Ef fective 2016-Present) Name:Emiliano Mcnulty Relation to Subscriber:Self Name:Emiliano Mcnulty Payer ID:[id number] Group ID:Not on file Type:Indemnity Address: [facility] [address] [place] [address] Care Teams Rubber Covering Machine Operator Relationship Specialty Start Date End Date Karen Love FNP [address] [place] [address] PCP - General Internal Medicine 08/09/18
--- OUTSIDE RECORDS SUMMARY | 2025-04-08 19:34 | XMS_ITS | Encounter Summary ---
Author Organization [employer] Address [address] [facility] 7t [place] [address] Care Team Providers Care Roadability Machine Operator Name Role Phone Nadir Arambula MD Primary Care Prov ider Reason for Visit * Reason Onset Date Comments NEW PATIENT 06/22/2023 Encounter Details Date Type Department Care Team (Late st Contact Info) Description 06/22/2023 Telephone [facility] [address] [place] [address] Crow Lutz MD [address] [place] [address] NEW PATIENT Social History Tobacco Use Types [...] on filedocumented in this encounter Care Teams Roadability Machine Operator Relationship Specialty Start Date End Date Nadir Arambula MD [address] [place] [address] PCP - General Internal Medicine 01/08/24 documented as of this encounter
--- OUTSIDE RECORDS SUMMARY | 2025-04-08 19:34 | XMS_ITS | Encounter Summary ---
Author Organization [facility] Address [address] [place] [address] Phone Care Team Providers Care Ibm Websphere Portal Developer Name Role Phone Hayder Monson FREIGHT BROKER AGENT Primary Care Provider + Encounter Details Date Type Department Care Team (Late st Contact Info) Description 11/28/2019 Transcribe Orders [facility] [address] [place] [id number] Hayder Monson, JUDIE [address] [place] [address] [place] [address] COVID-19 ruled out (Primary Dx) Social History [...] SARS-CoV-2 antibody, total (11/28/2019 11:31 AM EDT) [facility] SARS-CoV-2 antibody total Negative Negative [facility] Comment: A negative test result does not [...] 11/28/2019 12:03 PM EDT us Hayder Monson FREIGHT BROKER AGENT LAB BLOOD ORDERABLES Fin al Result [facility] [address] [place] [address] documented in this encounter Visit Diagnoses Diagnosis COVID-19 ruled out- Primary documented in this encounter Care Teams Ibm Websphere Portal Developer Relationship Specialty Start Date End Date Hayder Monson, JUDIE [address] [facility] [place] [address] PCP - General Family Medicine 11/28/19 documented as of this encounter Additional Source Comments The information contained in this document represents components of the legal health record. It is not the complete legal health record.[facility]
--- OUTSIDE RECORDS SUMMARY | 2025-04-08 19:34 | XMS_ITS | Clinical Summary ---
Author Organization [employer] Address [address] [facility] 7t [place] [address] Care Team Providers Care Toe Pounder Name Role Phone Nadir Arambula MD Primary [...] patient's age to complete this topic Insurance [facility] Care Teams Toe Pounder Relationship Specialty Start Date End Date Nadir Arambula MD [address] [place] [id number] PCP - General Internal Medicine 01/08/24
--- OUTSIDE RECORDS SUMMARY | 2025-04-08 19:34 | XMS_ITS | Encounter Summary ---
Author Organization [facility] Address [address] [place] [address] Phone Care Team Providers Care Chief School Finance Officer Name Role Phone Marin Childers MD Primary Care Provider [phone]- [phone] Hayder Monson NP Primary Care Provider + Encounter Details Date Type Department Care Team (Late st Contact Info) Description 06/11/2019 Transcribe Orders [facility] [address] [place] [address] Marin Childers MD [address] [place] [phone] [email or web address] Carpal tunnel syndrome, unspecified laterality (Primary Dx); [...] AM EST) TESTS REQUESTED SANDY DIFF (CBC) [facility] SPECIMEN/TUBE TYPE LAV [facility] REQUEST RECEIVED Request received. A separate order for the requested test will be generated by the laboratory. [facility] Blood 06/11/2019 10:1 5 AM EST 06/11/2019 10:25 AM EST us Marin Childers MD LAB BLOOD ORDERABLES Final Result Performing Organization Address [facility]/ZIP Co de Phone Number [address] [address] * (ABNORMAL) URINALYSIS WITH SEDIMENT (06/11/2019 9:48 AM EST) WBC NONE SEEN NONE SEEN /hpf [facility] RBC 0-2(A) NONE SEEN /hpf [facility] URINE EPITHELIAL NONE SEEN NONE SEEN [facility] MUCUS NONE SEEN NONE SEEN /hpf [facility] BACTERIA NONE SEEN NONE SEEN /hpf [facility] CRYSTALS 2+ [facility] Comment:Calcium Oxalate COLOR Yellow Yellow [facility] CLARITY Clear [facility] GLUCOSE Negative Negative [facility] BILI Negative Negative [facility] KETONES Negative Negative [facility] SPECIFIC GRAVITY 1.025 1.005 - 1.030 [facility] BLOOD Negative Negative [facility] PH 6.0 5.0 - 8.0 [facility] Protein-UA Negative Negative [facility] NITRITE Negative Negative [facility] Leukocyte esterase, ur Negative Negative [facility] Urine (Urine) 06/11/2019 9:4 8 AM EST 06/11/2019 10:22 AM EST us Marin Childers MD URINE ORDERABLES Final Res ult Performing Organization Address [facility] Co de Phone Number [address] [address] * TSH (06/11/2019 9:17 AM EST) TSH 0.83 0.27 - 4.20 uIU/mL [facility] Blood 06/11/2019 9:17 AM EST 06/11/2019 9:50 AM EST us Marin Childers MD LAB BLOOD ORDERABLES Final Result Performing Organization Address [facility] Co de Phone Number [address] [address] * (ABNORMAL) Lipid panel (06/11/2019 9:17 AM EST) HDL 68 mg/dL [facility] Comment: Interpretation <40 mg/dL: Low HDL cholesterol (major risk factor for CHD) Greater than or equal to 60 mg/dL: High HDL cholesterol ( negative risk factor for CHD) HDL - cholesterol is affected by a number of factors, e.g. smoking, excerise, hormones, sex and age. CHOLESTEROL 183 0 - 240 mg/dL [facility] TRIGLYCERIDES 62 30 - 160 mg/dL [facility] LDL 103 50 - 129 mg/dL [facility] Comment: LDL levels in terms of risk for coronary heart disease: <100 mg/dL: Optimal 100-129 mg/dL: Near or above optimal 130-159 mg/dL: Borderline high 160-189 mg/dL: High >190 mg/dL: Very High CARDIAC RISK RATIO 2.7(L) 3.4 - 5.0 [facility] Blood 06/11/2019 9:17 AM EST 06/11/2019 9:50 AM EST Marin Childers MD LAB BLOOD ORDERABLES Final Result Performing Organization Address City/State/[facility] Co de Phone Number [facility] [address] [place], [place] [phone] * (ABNORMAL) Comprehensive metabolic panel (06/11/2019 9:17 AM EST) SODIUM 140 133 - 146 mmol/L [facility] POTASSIUM 4.2 3.3 - 5.1 mmol/L [facility] CHLORIDE 102 96 - 108 mmol/L [facility] CO2 26 21 - 35 mmol/L [facility] BUN 26(H) 6 - 19 mg/dL [facility] CREATININE 0.90 0.5 - 1.5 mg/dL [facility] GLUCOSE 102(H) 70 - 99 mg/dL [facility] ALBUMIN 4.3 3.9 - 4.8 g/dL [facility] TOTAL PROTEIN 7.0 6.5 - 8.0 g/dL [facility] CALCIUM 9.2 8.4 - 10.3 mg/dL [facility] ALKALINE PHOSPHATASE 60 39 - 117 U/L [facility] TOTAL BILIRUBIN 0.3 0.0 - 1.2 mg/dL [facility] AST 66(H) 0 - 37 U/L [facility] ALT 59(H) 0 - 40 U/L [facility] GLOBULIN 2.7 1 - 4.8 g/dL [facility] EGFR 109 >59 mL/min/1.7 3m2 [facility] Comment:If patient is black, multiply result by 1.159. Estimated glomerular filtration rate calculated using the CKD-EPI equation. ANION GAP 16 10 - 20 mmol/L [facility] Blood 06/11/2019 9:17 AM EST 06/11/2019 9:50 AM EST us Marin Childers MD LAB BLOOD ORDERABLES Final Result Performing Organization Address City/State/[facility] Co de Phone Number [facility] [address] [place] [address] documented in this encounter Visit Diagnoses Diagnosis Carpal tunnel syndrome, unspecified laterality- Primary Screening for lipoid disorders documented in this encounter Care Teams Chief School Finance Officer Relationship Specialty Start Date End Date Marin Childers MD PCP - General Internal Medicine 06/11/19 11/27/19 Hayder Monson NP [facility] [place] [address] PCP - General Family Medicine 11/28/19 documented as of this encounter Additional Source Comments The information contained in this document represents components of the legal health record. It is not the complete legal health record.[facility]
--- OUTSIDE RECORDS SUMMARY | 2025-04-08 19:34 | XMS_ITS | Clinical Summary ---
Demographics Address [address] [facility] [address] [place] [address] Home Phone Email Address Preferred Language Malay Marital Status Single Yazidi Affiliation Unknown Race White Ethnic Group Not or Lati no Author Organization [facility] Address [address] [place] [address] Phone Care Team Providers Care Spray Drier Operator Name Role Phone Hayder Monson GENERATING STATION MECHANIC Primary Care Provider + Social History Tobacco [...] Billing Address Personal/Family Self 1980 [address] [facility] [address] [place] [address] [employer] NON [employer] PCP [employer] * Guarantor: Emiliano Mcnulty Account Type Relation to Patient Date of Phone Billing Address Personal/Family Self 1980 [address] [facility] [address] [place] [address] [employer] NON [employer] PCP [employer] Member Subscriber Plan / Payer (Ef fective 2019-Present) Name:Emiliano Mcnulty Relation to Subscriber:Self Name:Emiliano Mcnulty Payer ID:[id number] Type:HMO Address: [place] [id number] [address] [employer] NON [employer]G PCP [employer] 06/[address] [address] [employer] NON NSPG PCP [employer] * Guarantor: Emiliano Mcnulty Account Type Relation to Patient Date of Phone Billing Address Personal/Family Self 1980 06/[address] [facility] [address] [place] [address] [employer] NON [employer]G PCP [employer] 06/[address] [employer] NON NSPG PCP [employer] 06/20 [facility] [place], [place] [employer] NON NSPG PCP [employer] * Guarantor: Emiliano Mcnulty Account Type Relation to Patient Date of Phone Billing Address Personal/Family Self 1980 [address] [facility] [address] [place] [address] [employer] NON [employer]SPG PCP [employer] * Guarantor: Emiliano Mcnulty Account Type Relation to Patient Date of Phone Billing Address Personal/Family Self 1980 [address] [facility] [address] [place] [address] [employer] NON [employer]G PCP [employer] Care Teams Spray Drier Operator Relationship Specialty Start Date End Date Hayder Monson NP [address] [facility] [place] [address] PCP - General Family Medicine 11/28/19 Additional Source Comments The information contained in this document represents components of the legal health record. It is not the complete legal health record.[facility]
== END 2025-04-08 15:28 | disposition home or self-care (01) ==
LOC: HO.HUSH 14:31
PROVIDERS: PCP Nurse Practitioner Family; Visit Provider Urology
DX: F41.9 Anxiety disorder, unspecified (principal); Z30.09 Encounter for other general counseling and advice on contraception
CPT/HCPCS: 99204

== ENCOUNTER → 2025-04-08 14:30 | Outpatient (BNVA) | payer OTHER, SELFPAY | PROVIDERS: PCP Nurse Practitioner Family; Visit Provider Urology | DX: Z30.09 Encounter for other general counseling and advice on contraception (principal); R45.89 Other symptoms and signs involving emotional state | CPT/HCPCS: 99202 ==